=== PATIENT | male | born 1985 | race African-American/Black ===

== ENCOUNTER 2021-03-17 19:31 | Emergency (ER) | payer OTHER ==
[~2021-03-17] VITALS: Ht 165.1 cm; Wt 86.2 kg
[2021-03-17] MEDS ORDERED: NAPROSYN500 MG PO (20:39)
[2021-03-17 21:01] VITALS: BP 161/98
== END 2021-03-17 21:01 | disposition home or self-care (01) ==
LOC: M.ERS 19:31
DX: M25.561 Pain in right knee (principal); M25.562 Pain in left knee; W17.89XA Other fall from one level to another, initial encounter; Y93.39 Activity, other involving climbing, rappelling and jumping off; Y92.812 Truck as the place of occurrence of the external cause; Y99.8 Other external cause status